=== PATIENT | female | born 1975 | race Caucasian/White ===

== ENCOUNTER 2016-12-02 10:04 | Emergency (ER) | payer OTHER ==
[2016-12-02 10:27] VITALS: BP 118/95
--- NOTE | 2016-12-02 10:59 | UC ---
Complaint Female HPI - HPI Summary HPI Summary: 2 weeks ago after here period she thought she had some abnormal discharge-- treated twice with otc vaginal yeast treatment--now has (external) pain with urination-no discharge-pain seems to be getting worse--new same sex partner in October-does not use Latex products, uses a natural lubricant - History Of Current Complaint Chief Complaint: UCGU Stated Complaint: FREQUENT URINATION Time Seen by Provider: 12/02/16 10:32 Hx Obtained From: Patient Hx Last Menstrual Period: 11/22/16 ?: No Onset/Duration: Gradual Onset, Lasting Days - 10, Still Present Timing: Constant Severity Initially: Mild Severity Currently: Mild Radiates to: externally Character: Burning Aggravating Factor(s): Movement, [place], Urination Alleviating Factor(s): Position Associated Signs And Symptoms: Positive: Negative - Allergies/Home Medications Allergies/Adverse Reactions: Allergies Allergy/AdvReac Type Severity Reaction Status Date / Time No Known Allergies Allergy Verified 02/12/16 09:37 Home Medications: Home Medications Miconazole TOPICAL CREAM 2%* [Monistat 2%*] 12/02/16 [History] PMH/Surg Hx/FS Hx/Imm Hx Previously Healthy: Yes Endocrine History Of: Denies: Diabetes, Thyroid Disease Cardiovascular History Of: Denies: Cardiac Disorders, Hypertension Respiratory History Of: Denies: COPD, Asthma GI/ History Of: Denies: Ulcer - Surgical History Surgical History: Yes Surgery Procedure, Year, and Place: left inguinal hernia repair - Family History Known Family History: Positive: None - Social History Occupation: Employed Full-time Lives: Alone Alcohol Use: Daily Substance Use Type: None Smoking Status (MU): Former Smoker Type: Cigarettes Have You Smoked in the Last Year: No When Did the Patient Quit Smoking/Using Tobacco: over 20 years ago Review of Systems Constitutional: Negative Skin: Negative Eyes: Negative ENT: Negative Respiratory: Negative Cardiovascular: Negative Gastrointestinal: Negative Genitourinary: Dysuria, Frequency Motor: Negative Neurovascular: Negative Musculoskeletal: Negative Neurological: Negative Psychological: Negative All Other Systems Reviewed And Are Negative: Yes Physical Exam Triage Information Reviewed: Yes Appearance: Well-Appearing, No Pain Distress, Well-Nourished Vital Signs: Initial Vital Signs Temp 97.7 F 12/02/16 10:20 Pulse 66 12/02/16 10:20 Resp 16 12/02/16 10:20 BP 118/95 12/02/16 10:20 Pulse Ox 100 12/02/16 10:20 Vital Signs Reviewed: Yes Eye Exam: Normal Eyes: Positive: Conjunctiva Clear ENT Exam: Normal ENT: Positive: Normal ENT inspection, Hearing grossly normal, Pharynx normal. Negative: Trismus, Muffled/hoarse voice Dental Exam: Normal Neck exam: Normal Neck: Positive: Supple, Nontender Respiratory Exam: Normal Respiratory: Positive: Chest non-tender, Lungs clear, No accessory muscle use Cardiovascular Exam: Normal Cardiovascular: Positive: RRR, Pulses Normal, Brisk Capillary Refill Abdominal Exam: Normal Abdomen Description: Positive: Nontender, No Organomegaly, Soft Bowel Sounds: Positive: Present Musculoskeletal Exam: Normal Musculoskeletal: Positive: Strength Intact, ROM Intact, No Edema Neurological Exam: Normal Neurological: Positive: Alert, Muscle Tone Normal Psychological Exam: Normal Skin Exam: Normal UC Physical Exam Vital Signs On Initial Exam: Initial Vitals Temp Pulse Resp BP Pulse Ox 97.7 F 66 16 118/95 100 12/02/16 10:20 12/02/16 10:20 12/02/16 10:20 12/02/16 10:20 12/02/16 10:20 - Genitalia Exam Female Genitourinary: Vagina without Blood/Discharge, Other - erythemic irration left labia minora around to fossa-tender to touch, no open area Diagnostics - Laboratory Diagnostic Studies Completed/Ordered: urine sent for culture, affirm and apptima sent as vaginal swabs as patient cound not tolerate speculum (this is usual for her) Complaint Female Dx - Course Course Of Treatment: vaseline for external lubricant, lidocaine jelly increase fluids, , sitz bath, follow with environmental remediation consultant - Differential Dx/Diagnosis Differential Diagnosis/HQI/PQRI: Sexually Transmitted Disease, Urinary Tract Infection, Other - chaffing Provider Diagnoses: external genital chaffing Discharge - Discharge Plan Condition: Stable Disposition: HOME Prescriptions: Lidocaine 2% JELLY* 1 applic TOPICAL TID PRN #45 gm PRN Reason: pain Patient Education Materials: Lidocaine (On the skin), Sitz Bath (GEN), Vaginal Discharge (ED) Referrals: [facility] [Provider Group] - 5 Days No Primary Care Phys,NOPCP [Primary Care Provider] -
== END 2016-12-02 11:49 | disposition home or self-care (01) ==
LOC: UCEAST 10:04
DX: N89.8 Other specified noninflammatory disorders of vagina (principal); Z87.891 Personal history of nicotine dependence
CPT/HCPCS: 81002; 87086; 87480; 87491; 87510; 87591; 87661; 99212; G0463

== ENCOUNTER 2017-01-22 09:47 | Emergency (ER) | payer OTHER ==
[2017-01-22 10:23] VITALS: BP 135/72
--- NOTE | 2017-01-22 11:28 | UC ---
Throat Pain/Nasal Andrea HPI - HPI Summary HPI Summary: complaint of nasal congestion and cough that started approx 8 days ago can't sleep d/t coughing productive cough sinus pressure in her forehead and face that is increasing mild sore throat, feels exhausted denies fever but has had chills taking sinus decongestant and mucinex without relief going on a trip and concerned about treatment that may be needed for sinus infection - History of Current Complaint Chief Complaint: UCRespiratory Stated Complaint: COUGH AND CANT SLEEP Time Seen by Provider: 01/22/17 11:20 Hx Obtained From: Patient Hx Last Menstrual Period: 01/20/17 - Allergies/Home Medications Allergies/Adverse Reactions: Allergies Allergy/AdvReac Type Severity Reaction Status Date / Time No Known Allergies Allergy Verified 02/12/16 09:37 PMH/Surg Hx/FS Hx/Imm Hx Previously Healthy: Yes Endocrine History Of: Denies: Diabetes, Thyroid Disease Cardiovascular History Of: Denies: Cardiac Disorders, Hypertension Respiratory History Of: Denies: COPD, Asthma GI/ History Of: Denies: Ulcer - Surgical History Surgical History: Yes Surgery Procedure, Year, and Place: left inguinal hernia repair - Family History Known Family History: Positive: None Negative: Cardiac Disease, Hypertension, Diabetes - Social History Occupation: Employed Full-time Lives: With Family Alcohol Use: Daily Substance Use Type: None Smoking Status (MU): Former Smoker Type: Cigarettes Have You Smoked in the Last Year: No When Did the Patient Quit Smoking/Using Tobacco: over 20 years ago Review of Systems Constitutional: Chills, Fatigue Skin: Negative Eyes: Negative ENT: Sore Throat, Nasal Discharge Respiratory: Cough Cardiovascular: Negative Gastrointestinal: Negative Genitourinary: Negative Motor: Negative Neurovascular: Negative Musculoskeletal: Negative Neurological: Negative Psychological: Negative All Other Systems Reviewed And Are Negative: Yes Physical Exam Triage Information Reviewed: Yes Appearance: No Pain Distress, Well-Nourished Vital Signs: Initial Vital Signs Temp 97.6 F 01/22/17 10:19 Pulse 69 01/22/17 10:19 Resp 16 01/22/17 10:19 BP 135/72 01/22/17 10:19 Pulse Ox 98 01/22/17 10:19 Vital Signs Reviewed: Yes Eyes: Positive: Conjunctiva Clear ENT: Positive: Pharynx normal, Nasal congestion, Nasal drainage, TMs normal, Other: - frontal sinus tenderness Neck: Positive: No Lymphadenopathy Respiratory: Positive: Lungs clear, Normal breath sounds, No respiratory distress Cardiovascular: Positive: RRR, No Murmur, Pulses Normal Musculoskeletal: Positive: No Edema Neurological Exam: Normal Psychological Exam: Normal Skin Exam: Normal Throat Pain/Nasal Course/Dx - Differential Dx/Diagnosis Differential Diagnosis/HQI/PQRI: Pharyngitis, Sinusitis, Tonsillitis, URI Provider Diagnoses: sinusitis Discharge - Discharge Plan Condition: Stable Disposition: HOME Prescriptions: Amoxicillin/Clavulanate TAB* [Augmentin TAB 875*] 875 mg PO BID #20 tab Benzonatate CAP* [Tessalon CAP*] 100 mg PO TID #30 cap Patient Education Materials: Sinusitis (ED) Referrals: No Primary Care Phys,NOPCP [Primary Care Provider] - [facility] [place]] Additional Instructions: SINUSITIS What is Sinusitis? Sinusitis is inflammation or infection of the lining of the sinuses behind the bones in your cheeks or forehead. Sinusitis may occur following a common cold, flu, or other infection; allergies; a tooth infection that spreads to the sinuses; swimming in contaminated water; pressure changes in airplanes at high altitudes; violent sneezing or nose blowing or smoking or breathing other peoples smoke. Symptoms Might Include: Nasal Congestion Sneezing Watery eyes, eye irritation, or eye itching Headaches Pressure in the cheeks Wheezing Trouble smelling Sore throat and coughing may occur Treatment Recommendations: Take medicines as prescribed until completely gone. Drink plenty of fluids. Use saline nose spray to thin the mucous and help the sinuses drain. Use a vaporizer or humidifier. Apply warm compresses to the face or forehead several times a day for 10 to 20 minutes. Call Your Doctor or Return Here IF: Your pain increases during treatment. You develop a high temperature. You develop unusual swelling around the eyes. You have difficulty with your vision. You develop a severe headache, earache, or toothache. You develop increased fever or fever that does not respond to medication such as Tylenol?. You have difficulty breathing or catching your breath. You begin to have any other new symptoms that worry you.
== END 2017-01-22 11:43 | disposition home or self-care (01) ==
LOC: UCEAST 09:47
DX: J32.9 Chronic sinusitis, unspecified (principal); Z87.891 Personal history of nicotine dependence
CPT/HCPCS: 99212; G0463